=== PATIENT | female | born 1990 ===

== ENCOUNTER 2020-07-07 18:37 | Outpatient (REF) | payer SELFPAY ==
[2020-07-11 18:55] LABS: COVID-19 RT-PCR Result NEGATIVE (Negative)
== END 2020-07-07 18:57 ==
LOC: NCHCN 18:37
PROVIDERS: PCP Nurse Practitioner Family; Visit Provider Nurse Practitioner Family
DX: Z11.59 Encounter for screening for other viral diseases (principal)
CPT/HCPCS: U0003

== ENCOUNTER 2021-04-24 15:41 | Outpatient (REF) | payer OTHER, SELFPAY | END 2021-04-24 15:42 | disposition home or self-care (01) | LOC: LBN 15:41 | PROVIDERS: PCP Nurse Practitioner Family; Visit Provider Physician Assistant Medical | DX: R39.15 Urgency of urination (principal) | CPT/HCPCS: 87077; 87086; 87186 ==

== ENCOUNTER → 2024-02-13 15:47 | Outpatient (CLI) | payer OTHER, SELFPAY ==
--- NOTE | 2024-02-13 | DI.RAD_ITS ---
Exam(s) XR HIP RT COMPLETE AP PELVIS EXAM: XR HIP RT COMPLETE AP PELVIS CLINICAL HISTORY: HIP JOINT PAIN,RIGHT M25.551. TECHNIQUE: 2D digital imaging was performed. Two views COMPARISON: No exams were available for comparison FINDINGS: BONES: No acute fracture is present. No bony destructive lesion is seen. Partial sacralization of t he right L5 transverse process. JOINTS: No dislocation present. Hip joint spaces are maintained. Minimal periarticular spurring. The SI joints and pubic symphysis are unremarkable. SOFT TISSUE: Normal. IMPRESSION: No acute abnormality. Minimal degenerative changes. DATA REPOSITORY: RADIATION DOSE DELIVERED:
== END ==
PROVIDERS: PCP Nurse Practitioner Family; Visit Provider Nurse Practitioner Adult Health
DX: M25.551 Pain in right hip (principal)
CPT/HCPCS: 73502